=== PATIENT | male | born 1985 | race Caucasian/White ===

== ENCOUNTER 2024-09-16 05:39 | Emergency (ER) | payer SELFPAY ==
[2024-09-16] VITALS (25 sets, daily range): BP systolic 108–160; BP diastolic 71–102; PULSE 95–135; RESP 12–19; TEMP 36.3; O2SAT 98–100
--- NOTE | ~2024-09-16 | XR_ITS ---
Portable upright view of the abdomen Clinical history: NG tube placement Findings: NG tube in satisfactory position on this exam. Several distended small bowel loops are pres ent, which could reflect bowel obstruction. No abnormal mass lesion or calcification is seen. Osseous structures are intact. Impression: NG tube in satisfactory position. Possible small bowel obstruction. Reviewed, dictated and finalized at [facility]. Impression: NG tube in satisfactory position. Possible small bowel obstruction.
--- NOTE | ~2024-09-16 | CT_ITS ---
Non-contrast Head CT History: Seizure Technique: Axial non-contrast imaging of the brain was performed. Dose reduction technique was used on this scan by utilizing automated exposure control and iterative reconstruction technique. The dose -length product (DLP) was 681.00 mGy-cm. Findings: There is no evidence of intracranial hemorrhage, mass lesion, or acute infarct. Brain par enchyma appears normal. The ventricles and subarachnoid spaces are normal in size. The calvarium ap pears normal. The visualized paranasal sinuses and mastoid air cells are clear. Impression: No significant abnormality seen. Reviewed, dictated and finalized at location . Impression: No significant abnormality seen.
--- NOTE | ~2024-09-16 | XR_ITS ---
Portable chest x-ray Comparison: None Clinical History: Seizure, tube placement Findings: Endotracheal tube in satisfactory position. NG tube is partially imaged in the neck, coile d in the pharynx, with tip at the thoracic inlet region. Lungs are clear, without focal consolidation or pleural effusion. Cardiomediastinal silhouette is unremarkable. Bones and soft tissues are unrem arkable. Impression: Malpositioned NG tube which is coiled in the neck/pharynx with tip at the level of the thoracic inlet . Removal and replacement/repositioning of NG tube is required. ET tube in satisfactory position. Clear lungs. Reviewed, dictated and finalized at location M. Impression: Malpositioned NG tube which is coiled in the neck/pharynx with tip at the level of the thoracic inlet. Removal and replacement/repositioning of NG tube is req uired. ET tube in satisfactory position. Clear lungs.
[2024-09-16] MEDS: LORazepam INJ (*CRX) 2 MG/ML VIAL 4 MG IV PUSH (05:27)
[2024-09-16] MEDS: ROCURONIUM BROMIDE 50 MG/5 ML VIAL 100 MG IV PUSH (05:36)
[2024-09-16] MEDS: ETOMIDATE 20 MG/10 ML AMPUL IV PUSH (05:36)
--- NOTE | 2024-09-16 05:40 | PC.NURSE ---
Addendum entered by Paz Eng RN 09/16/24 06:08: unable to place temp nicolette solis placed Original Note: 4mg ativan @ 0527 edp torossian at bedside for intubation 0527 20mg etomidate @ 0536 100mg rocuronium @ 0536 7.5ett @ 26 at the lip secretion and vomit in the airway course breathe sounds positive color change Soft restraints placed @ 0540 NG @ 80 via edp torossian @ 0540 temp solis @ 0545
--- NOTE | 2024-09-16 05:52 | ED.SEIZURE ---
HPI - Seizure General Chief Complaint: Seizure Stated Complaint: 6 sz since 0200 Time Seen by Provider: 09/16/24 05:46 History of Present Illness HPI Narrative: 38-year-old male with history of traumatic brain injury and epilepsy as well as polysubstance abuse presenting to the emergency department and status epilepticus patient had reportedly 6 seizures witnessed by family members at home who did not call EMS initially as he has a history of epilepsy and they were waiting this out but patient was not responsive were coming out of it. EMS was called to find the patient combative and postictal, pulling at lines and oxygen. He arrives into the emergency department in to room 14 where he was found to be actively seizing, generalized tonic clonic seizure activity, cyanotic and hypoxic at 70% with gurgling respirations and smell of vomitus. RSI set up for emergent intubation. Collateral formation provided by EMS and family who is on the way. He takes oxcarbazepine but no other medications for epilepsy. No reported trauma today. Other collateral formation limited at this time. No history in the EMR. Related Data Allergies Allergy/AdvReac Type Severity Reaction Status Date / Time No Known Allergies Allergy Verified 09/16/24 06:40 Review of Systems Review of Systems: ROS unobtainable: Yes unobtainable due to medical condition and unobtainable due to mental status Exam Narrative: GENERAL: Active generalized tonic clonic seizure activity with gaze deviation to the left side, gurgling respirations. respiratory distress HEAD: [Normocephalic, atraumatic.] EYES: Pupils are 4 mm and gaze deviation to the left side ENT: Nares clear, no rhinorrhea or epistaxis. Mucous membranes moist. NECK: Supple. CHEST: Coarse bibasilar breath sounds with gurgling respirations HEART: Tachycardic rate, regular rhythm. No murmur heard. Cyanotic peripheral extremities and perioral ABDOMEN: [Soft, nondistended], [nontender], [No rigidity or guarding] EXTREMITIES: Normal range of motion. [No edema.] SKIN: Skin mottling with cyanosis and ashen redd coloration to the face and blue lips with cyanotic appearance to the extremities NEURO: Active generalized tonic clonic seizure activity, gaze preference to the left side Course Vital Signs Vital signs: Vital Signs Temperature 36.3 C L 09/16/24 05:26 Pulse Rate 133 H 09/16/24 05:26 Respiratory Rate 16 09/16/24 05:26 Blood Pressure 144/95 H 09/16/24 05:26 Pulse Oximetry 100 09/16/24 05:26 Oxygen Delivery Room Air 09/16/24 05:26 Temperature 36.3 C L 09/16/24 05:26 Pulse Rate 98 09/16/24 08:15 Respiratory Rate 18 09/16/24 08:15 Blood Pressure 115/80 09/16/24 08:15 Pulse Oximetry 99 09/16/24 08:15 Oxygen Delivery Mechanical Ventilation 09/16/24 05:30 Fraction of Inspired Oxygen 100 09/16/24 05:30 Procedures EJ/Peripheral Line Arm L: EJ/Peripheral Line Date: 09/16/24 EJ/Peripheral Line Time: 06:39 Time Out Performed: Yes Skin Cleansed in Sterile Fashion: Yes Ultrasound Guided: Yes Size (gauge): 18 IV Secured and Dressing Applied: Yes Patient Tolerated Procedure: well and no complications Additional Comments: Coat Joiner images of vein captured Intubation Intubation #1: Intubation Date: 09/16/24 Intubation Time: 05:30 Time out performed: Yes sedative: Etomidate Mg Given: 20 paralytic: Rocuronium Mg Given: 100 Laryngoscope: fiber optic video scope Tube Size (cm): 7.5 Method of Intubation: orotracheal Number of Attempts: 1 Tube Secured Depth (cm): 24 Tube Secured Location: lips Tube Placement Confirmation: visualized tube passing through cords, equal breath sounds bilaterally, no breath sounds over epigastrium and confirmation by capnometry Patient Tolerated Procedure: well and no complications Intubation Complications: none Additional Comments: Frothy secretions and vomitus in the posterior oropharynx and airway. Suctioned. MDM - Seizure MDM Narrative Medical decision making narrative: 38-year-old male with a history traumatic brain injury with resultant epilepsy on oxcarbazepine. Patient presents with status epilepticus. He was found to have 6 seizures by family members at home back to back without any return to baseline. Patient presents seizing in the resuscitation room 14. Where he is cyanotic, ashen redd in appearance with mottling to the skin, gurgling respirations, respiratory distress, 70% on room air with good waveform, smell of vomitus in his mouth. RSI kit set up for emergent intubation, 4 mg of IV Ativan was provided, 3 g of Keppra loaded, rapid sequence intubation with etomidate and rocuronium underway with 1st pass success via video laryngoscopy. Vomitus and frothy secretions in the airway. 7.5 ET tube secured at 24 cm at the lip. Patient's oxygenation improved 100% with bagging, x-ray confirmed endotracheal tube intubation placement, OG tube needing readjustment. Patient started on propofol infusion at 40 micrograms/kilogram per minute, Keppra and fluids completed, remains tachycardic with a pulse in the 120s to 130s, blood pressure 140-[address] of the head was ordered, chest x-ray, EKG, basic laboratory studies, lactic acid, urine drug screen and toxicological panels obtained. Patient will need transfer to higher level care center with Neurology capabilities and Neuro ICU. Will obtain CT head and transfer will be initiated. CT head shows no acute intracranial abnormalities. Initial ABG shows significant acidosis with an undetectable pH under 6.7 likely secondary to significant acidosis from seizure activity. Three ampules of sodium bicarbonate were infused and repeat VBG obtained shortly thereafter. Laboratory studies were initially hemolyzed and IV was established into left forearm under ultrasound guidance and redrawn. Spoke to the [facility] transfer system and was connected with the triage team who will accept the patient to the ICU after laboratory studies and CT report. Awaiting labs and will report back to Shayy at the [facility] transfer center @ [phone]. Patient's laboratory studies started coming back with a leukocytosis of 40,000, electrolytes still pending, I discussed the case with the Neuro ICU physician and patient was accepted at [facility] ICU under Dr. Gallego with recommendations to start empiric antibiosis and antiviral therapy. He was started on vancomycin, ceftriaxone and azithromycin. Air evac was placed on standby and awaiting bed assignment for transfer. Medical Records Attestation: I reviewed the patient's medical records. Lab Data Attestation: I reviewed the patient's lab results. 09/16/24 06:10 09/16/24 07:17 Labs: Lab Results 09/16/24 09/16/24 09/16/24 Range/Units 06:10 06:12 06:37 WBC 40.1 H (4.5-10.0) K/mm3 RBC 5.69 (4.6-6.20) M/mm3 Hgb 17.3 (14.0-18.0) g/dL Hct 56.6 H (42.0-52.0) % MCV 99.5 (80-100) fl MCH 30.4 (26-34) pg MCHC 30.6 L (32-36) g/dl RDW 13.2 (11.5-14.5) % Plt Count 369 (150-375) k/mm3 MPV 9.8 (7.4-10.4) fl Immature Gran % (Auto) 2.5 H (0-0.5) % Neut % (Auto) 66.7 (45.5-73.1) % Lymph % (Auto) 22.1 (18.3-44.2) % Thurston % (Auto) 7.5 (2.6-8.5) % Eos % (Auto) 0.7 (0-4.4) % Baso % (Auto) 0.5 (0.2-1.2) % Lymph # (Auto) 8.87 H (0.9-3.2) K/mm3 Thurston # (Auto) 3.0 H (0.1-0.6) K/mm3 Eos # (Auto) 0.3 (0-0.3) K/mm3 Baso # (Auto) 0.2 H (0.0-0.1) K/mm3 Abs Immat Gran (auto) 1.01 H (0.00-0.031) K/mm3 Absolute Neuts (auto) 26.7 H (1.3-6.7) K/mm3 Absolute Nucleated RBC 0.000 (0.0-0.012) K/mm3 Nucleated RBC % 0.0 (0.0-0.2) % PT 17.7 H (11.1-14.7) Seconds INR 1.5 APTT 35.5 (22.3-36.8) Seconds Minute Volume Vent Mode Tidal Volume ml PEEP cmH2O Peak Inspir Pressure Pressure Support Sodium (137-145) mmol/L Potassium (3.4-5.0) mmol/L Chloride (98-107) mmol/L Carbon Dioxide (22-30) mmol/L Anion Gap (4-12) mmol/L BUN (9-20) mg/dL Creatinine (0.7-1.3) mg/dL Estim Creat Clear Calc ml/min Estimated GFR (59 - ) Glucose (65-110) mg/dL POC Capillary Glucose 230 H (65-105) mg/dl Lactic Acid (0.7-2.0) mmol/L Calcium (8.4-10.2) mg/dL Total Bilirubin (0.2-1.3) mg/dL AST (17-59) U/L ALT (6-50) U/L Alkaline Phosphatase (38-126) U/L Total Protein (6.3-8.2) g/dL Albumin (3.5-5.1) g/dL TSH (0.465-4.680) uIU/mL Urine Color Yellow (Yellow) Urine Appearance Clear (Clear) Urine pH 5.0 (5.0-9.0) Ur Specific Etta 1.012 (1.001-1.035) Urine Protein 2+ H (Negative) mg/dL Urine Glucose (UA) Trace H (Negative) mg/dL Urine Ketones Negative (Negative) mg/dL Ur Blood (Man) 2+ H (Negative) Urine Nitrate Negative (Negative) Urine Bilirubin Negative (Negative) Urine Urobilinogen 0.2 (<2.0) mg/dL Add Ur Microanalysis Reviewed Leukocyte Esterase Rfl Negative (Negative) LISSY/UL Urine RBC 0-2 (0-2) /hpf Urine WBC 0-5 (0-3) /hpf Ur Squamous Epith Cells None seen (Few) /hpf Urine Bacteria None seen /hpf Urine Casts >20 Salicylates < 1.0 L (2-20) mg/dL Urine Opiates Screen Negative (Negative) Urine Methadone Screen Negative (Negative) Acetaminophen < 10 L (10-30) ug/mL Ur Barbiturates Screen Negative (Negative) Ur Phencyclidine Scrn Negative (Negative) Ur Amphetamine Screen Negative (Negative) U Benzodiazepines Scrn Negative (Negative) Urine Cocaine Screen Negative (Negative) U Cannabinoids Screen Negative (Negative) Ethyl Alcohol < 10 (<10) mg/dL 09/16/24 09/16/24 Range/Units 06:54 07:17 WBC (4.5-10.0) K/mm3 RBC (4.6-6.20) M/mm3 Hgb (14.0-18.0) g/dL Hct (42.0-52.0) % MCV (80-100) fl MCH (26-34) pg MCHC (32-36) g/dl RDW (11.5-14.5) % Plt Count (150-375) k/mm3 MPV (7.4-10.4) fl Immature Gran % (Auto) (0-0.5) % Neut % (Auto) (45.5-73.1) % Lymph % (Auto) (18.3-44.2) % Thurston % (Auto) (2.6-8.5) % Eos % (Auto) (0-4.4) % Baso % (Auto) (0.2-1.2) % Lymph # (Auto) (0.9-3.2) K/mm3 Thurston # (Auto) (0.1-0.6) K/mm3 Eos # (Auto) (0-0.3) K/mm3 Baso # (Auto) (0.0-0.1) K/mm3 Abs Immat Gran (auto) (0.00-0.031) K/mm3 Absolute Neuts (auto) (1.3-6.7) K/mm3 Absolute Nucleated RBC (0.0-0.012) K/mm3 Nucleated RBC % (0.0-0.2) % PT (11.1-14.7) Seconds INR APTT (22.3-36.8) Seconds Minute Volume Not Reportable Vent Mode Cmv Tidal Volume 400 ml PEEP 5 cmH2O Peak Inspir Pressure Not Reportable Pressure Support Not Reportable Sodium 142 (137-145) mmol/L Potassium 5.0 (3.4-5.0) mmol/L Chloride 105 (98-107) mmol/L Carbon Dioxide 17 L (22-30) mmol/L Anion Gap 20 H (4-12) mmol/L BUN 13 (9-20) mg/dL Creatinine 1.62 H (0.7-1.3) mg/dL Estim Creat Clear Calc 46 ml/min Estimated GFR 48 L (59 - ) Glucose 224 H (65-110) mg/dL POC Capillary Glucose (65-105) mg/dl Lactic Acid 12.6 H* (0.7-2.0) mmol/L Calcium 8.5 (8.4-10.2) mg/dL Total Bilirubin 0.5 (0.2-1.3) mg/dL AST 51 (17-59) U/L ALT 43 (6-50) U/L Alkaline Phosphatase 73 (38-126) U/L Total Protein 7.2 (6.3-8.2) g/dL Albumin 4.3 (3.5-5.1) g/dL TSH 4.490 (0.465-4.680) uIU/mL Urine Color (Yellow) Urine Appearance (Clear) Urine pH (5.0-9.0) Ur Specific Etta (1.001-1.035) Urine Protein (Negative) mg/dL Urine Glucose (UA) (Negative) mg/dL Urine Ketones (Negative) mg/dL Ur Blood (Man) (Negative) Urine Nitrate (Negative) Urine Bilirubin (Negative) Urine Urobilinogen (<2.0) mg/dL Add Ur Microanalysis Leukocyte Esterase Rfl (Negative) LISSY/UL Urine RBC (0-2) /hpf Urine WBC (0-3) /hpf Ur Squamous Epith Cells (Few) /hpf Urine Bacteria /hpf Urine Casts Salicylates (2-20) mg/dL Urine Opiates Screen (Negative) Urine Methadone Screen (Negative) Acetaminophen (10-30) ug/mL Ur Barbiturates Screen (Negative) Ur Phencyclidine Scrn (Negative) Ur Amphetamine Screen (Negative) U Benzodiazepines Scrn (Negative) Urine Cocaine Screen (Negative) U Cannabinoids Screen (Negative) Ethyl Alcohol (<10) mg/dL ABG Data ABG results: 09/16/24 09/16/24 05:57 06:54 ABG pH < 6.700 L* ABG pCO2 44.0 ABG pO2 < 570.0 H VBG pH 7.237 L* VBG pCO2 36.0 L VBG pO2 53.8 H VBG HCO3 15.0 L Oxyhemoglobin 98.1 Total Hemoglobin 19.3 H O2 Delivery Device Ventilator O2 Liters/Min Not Reportable Vent Rate 18 FiO2 100 30 Attestation: I personally reviewed and interpreted this ABG as follows: Interpretation: Significant acidosis likely metabolic. Repeat VBG shows metabolic acidosis as well with likely component lactic acid Imaging Data Attestation: I personally reviewed and interpreted this imaging study as follows: My impression: Impressions Chest X-Ray 09/16/24 06:07 Impression: Malpositioned NG tube which is coiled in the neck/pharynx with tip at the level of the thoracic inlet. Removal and replacement/repositioning of NG tube is required. ET tube in satisfactory position. Clear lungs. Abdomen X-Ray 09/16/24 06:08 Impression: NG tube in satisfactory position. Possible small bowel obstruction. Head CT 09/16/24 06:35 Impression: No significant abnormality seen. Critical Care Time Critical Care Time Critical Care Time: Yes Total Critical Care Time: 75 Discharge Plan Discharge Clinical Impression: Status epilepticus, Metabolic acidosis, Elevated WBCs, History of traumatic brain injury Patient Disposition: Acute Care Hospital Condition: Serious Patient Language: Malay Follow-up/Referrals: UNKNOWN,DOCTOR [Primary Care Provider] - Time of Disposition: 07:11
[2024-09-16] MEDS: levETIRAcetam 1500MG/NACL100ML 3,000 MG/200 ML BAG 999 MG (05:57)
[2024-09-16] MEDS: PROPOFOL IV EMULSION 100 ML 17.3 MG (05:59)
--- NOTE | 2024-09-16 06:03 | PC.NURSE ---
ng removed as it was coiled in the throat. OG placed 65 @ lip
[2024-09-16 06:11] LABS: Fractional Inspired Oxygen 100 %; Oxyhemoglobin 98.1 % THb (90.0-100.0); PO2 ABG < 570.0 mmHg (80.0-100.0); Total Hemoglobin 19.3 g/dL (12.0-18.0)
[2024-09-16] MEDS: LACTATED RINGERS 1,000 ML 999 ML IV CONT (06:12)
[2024-09-16 06:13] LABS: Glucose Point of Care 230 mg/dl (65-105)
[2024-09-16 06:24] LABS: Basophils Absolute Auto 0.2 K/mm3 (0.0-0.1); Basophils Percent Auto 0.5 % (0.2-1.2); Eosinophils Absolute Auto 0.3 K/mm3 (0-0.3); Eosinophils Percent Auto 0.7 % (0-4.4); Hematocrit 56.6 % (42.0-52.0); Hemoglobin 17.3 g/dL (14.0-18.0); Immature Granulocyte Absolute 1.01 K/mm3 (0.00-0.031); Immature Granulocyte Percent A 2.5 % (0-0.5); Lymphocytes Absolute Auto 8.87 K/mm3 (0.9-3.2); Lymphocytes Percent Auto 22.1 % (18.3-44.2); Mean Corpuscular HGB Conc 30.6 g/dl (32-36); Mean Corpuscular Hemoglobin 30.4 pg (26-34); Mean Corpuscular Volume 99.5 fl (80-100); Mean Platelet Volume 9.8 fl (7.4-10.4); Monocytes Percent Auto 7.5 % (2.6-8.5); Neutrophils Absolute Auto 26.7 K/mm3 (1.3-6.7); Neutrophils Percent Auto 66.7 % (45.5-73.1); Platelet Count Result 369 k/mm3 (150-375); Red Blood Count 5.69 M/mm3 (4.6-6.20); Red Cell Distribution Width 13.2 % (11.5-14.5); White Blood Count 40.1 K/mm3 (4.5-10.0)
[2024-09-16 06:35] LABS: INR 1.5; Prothrombin Time 17.7 Seconds (11.1-14.7)
[2024-09-16 06:36] LABS: Partial Thromboplastin Time 35.5 Seconds (22.3-36.8)
[2024-09-16 06:37] LABS: Acetaminophen < 10 ug/mL (10-30); Ethanol < 10 mg/dL (<10); Salicylate < 1.0 mg/dL (2-20)
[2024-09-16 06:39] LABS: Amphetamine Screen Urine Negative (Negative); Barbiturate Screen Urine Negative (Negative); Benzodiazepines Screen Urine Negative (Negative); Cannabinoid Screen Urine Negative (Negative); Cocaine Screen Urine Negative (Negative); Methadone Screen Urine Negative (Negative); Opiate Screen Urine Negative (Negative); Phencyclidine Screen Urine Negative (Negative)
--- NOTE | 2024-09-16 06:39 | PC.NURSE ---
jacob peacock to push 3 amps of sodium bicarb while patient in ct.
[2024-09-16] MEDS: SODIUM BICARBONATE 8.4% 50 MEQ/50 ML SYRINGE 150 MEQ IV PUSH (06:40)
[2024-09-16 06:47] LABS: Add Urine Microscopic? YES; Appearance Urine Clear (Clear); Bacteria Urine None Seen /hpf; Bilirubin Urine Negative (Negative); Blood Urine 2+ (Negative); Color Urine Yellow (Yellow); Glucose Urine UA Trace mg/dL (Negative); Ketones Urine Negative (Negative); Leukocyte Esterase Ur Negative LEU/UL (Negative); Need Manual Microscopic Reviewed; Nitrate Urine Negative (Negative); Non Pathogenic Casts >20; Protein Urine 2+ mg/dL (Negative); RBC Urine 0-2 /hpf (0-2); Specific Grav Ur 1.012 (1.001-1.035); Squamous Epithelial Cell Urine None Seen /hpf (Few); Urobilinogen Urine 0.2 mg/dL (<2.0); WBC Urine 0-5 /hpf (0-3)
[2024-09-16 06:55] LABS: pH ABG < 6.700 (7.350-7.450)
[2024-09-16 07:02] LABS: Fractional Inspired Oxygen 30 %; PO2 VBG 53.8 mmHg (35.0-45.0)
[2024-09-16 07:03] LABS: Arterial Blood Gas PEEP 5 cmH2O; Arterial Blood Gas Tidal Volume 400 ml; Arterial Blood Gas Vent Mode CMV; Arterial Blood Gas Ventilator rate 18 /MIN; Device VENTILATOR; pH VBG 7.237 (7.300-7.400)
[2024-09-16 07:47] LABS: Alanine Aminotransferase 43 U/L (6-50); Albumin Level 4.3 g/dL (3.5-5.1); Alkaline Phosphatase 73 U/L (38-126); Anion Gap 20 mmol/L (4-12); Aspartate Amino Transferase 51 U/L (17-59); Bilirubin,Total 0.5 mg/dL (0.2-1.3); Blood Urea Nitrogen 13 mg/dL (9-20); Calcium 8.5 mg/dL (8.4-10.2); Carbon Dioxide 17 mmol/L (22-30); Chloride 105 mmol/L (98-107); Estimated CRCL calculation 46 ml/min; Estimated Glomerular Filt Rate 48; Glucose 224 mg/dL (65-110); Sodium 142 mmol/L (137-145); Total Protein 7.2 g/dL (6.3-8.2)
[2024-09-16] MEDS: ACYCLOVIR SODIUM IVPB 800 MG in DEXTROSE 5% IN WATER 250 ML 266 MG IVPB (07:50)
[2024-09-16 07:59] LABS: Lactic Acid Reflex 12.6 mmol/L (0.7-2.0)
[2024-09-16] MEDS: VANCOMYCIN 1,500 MG/NS 500 ML 1,500 MG/500 ML BAG 250 MG IVPB (08:46)
[2024-09-16 09:23] LABS: Reflex Lactic Acid Yes or No Add Lactic
== END 2024-09-16 09:15 | disposition short-term general hospital (02) ==
PROVIDERS: Emergency Provider Student in an Organized Health Care Education/Training Program
DX: G40.901 Epilepsy, unspecified, not intractable, with status epilepticus (principal); E87.20 Acidosis, unspecified; D72.829 Elevated white blood cell count, unspecified; Z87.820 Personal history of traumatic brain injury
CPT/HCPCS: 31500; 36415; 36600; 70450; 80053; 80143; 80179; 80307; 81001; 82077; 82803; 82805; 82948; 83605; 84443; 85018; 85025; 85610; 85730; 87040; 96361; 96365; 96366; 96367; 96375; 99291; J0133; J0696; J1953; J2060; J2704; J3370; J7060; J7120

== ENCOUNTER 2025-02-16 07:20 | Emergency (ER) | payer MEDICAID, SELFPAY ==
[2025-02-16] VITALS (13 sets, daily range): BP systolic 110–125; BP diastolic 71–82; PULSE 64–100; RESP 12–30; TEMP 36.9; O2SAT 96–100
--- NOTE | ~2025-02-16 | CT_ITS ---
EXAMINATION: CT facial & cervical spine wo COMPARISON: None HISTORY: trauma TECHNIQUE: Axial images were obtained without IV contrast. Sagittal, coronal reconstruction images were obtained from the axial views. CT scan performed using dose optimization techniques including the following automated exposure control; adjustment of mA and/or kV; use of iterative reconstruction technique. Automatic exposure control was used to reduce radiation dose. Permanent radiation dose record is archived to PACS. FINDINGS: CT facial bones: Nasal bones are intact. Anterior maxillary sinus kenny, zygomatic arches temporomandibular joints are intact. Orbital floors and medial orbits are intact. There is minimal ethmoidal and maxillary sinusitis. Visualized brain parenchyma is unremarkable. Optic globes unremarkable. No sign ificant preseptal soft tissue swelling. The remaining soft tissues appear unremarkable. There is significant dental disease noted within the left maxilla. CT cervical spine: The soft tissues and lung apices appear unremarkable. No fracture or subluxation. Moderate loss of disc height at C5-6 and C6-7 with moderate canal and foraminal stenosis. IMPRESSION: 1. No acute fracture. Reviewed, dictated and finalized at location P. MA OPERATOR IMPRESSION: 1. No acute fracture.
--- NOTE | ~2025-02-16 | CT_ITS ---
CT HEAD NON-CONTRAST Clinical History: trauma Comparison: 09/16/2024 Technique: Unenhanced axial images skull base to vertex Coronal, sagittal reformats CT images acquired with automatic exposure control for dose reduction DLP: 605 mGy-cm Findings: Sulci, ventricles: Unremarkable. No intracerebral hemorrhage. No evidence acute territorial infarct. No mass effect, midline shift. Bony calvarium intact. Visualized paranasal sinuses: Clear. Mastoid air cells: Clear. IMPRESSION: 1. No acute intracranial findings. Reviewed, dictated and finalized at location R. ING MACHINE ASSEMBLER
--- NOTE | 2025-02-16 08:20 | ED.GENADULT ---
HPI - General Adult General Chief complaint: Seizure Stated complaint: seizure - known epileptic - head injury Time Seen by Provider: 02/16/25 07:30 History of Present Illness HPI narrative: 39-year-old male presenting to emergency department for evaluation after having a seizure. Patient is currently on Keppra and Tegretol and has not yet had his morning dose which he normally takes at 10:00 a.m.. Patient's last seizure was approximately 1 month ago and that is about his standard injure seizure duration. Patient does not have a local neurologist. Patient denies any pain or injury other than a facial injury. Patient did strike the right side of his face and does have a laceration under his right eyebrow. Related Data Home Medications ?Medication ?Instructions ?Recorded ?Confirmed ?Last Taken ?Type levetiracetam 1,000 mg tablet 1,000 mg PO Q12H 02/16/25 02/16/25 02/15/25 History oxcarbazepine 300 mg tablet 450 mg PO BID 02/16/25 02/16/25 02/15/25 History Allergies Allergy/AdvReac Type Severity Reaction Status Date / Time No Known Allergies Allergy Verified 02/16/25 07:22 Review of Systems Review of Systems: All systems reviewed & are unremarkable except as noted in HPI and below Exam Narrative: APPEARANCE: Well appearing, no pain, no distress, well-nourished. HEAD: normocephalic, atraumatic. EYES: PERRLA/EOMI, conjunctivae clear. NOSE: Normal no drainage EARS:TMS clear with good light reflex. THROAT: Pharynx clear, no exudate. NECK: Supple. No adenopathy, no masses. RESPIRATORY: Airway patent, respirations nonlabored. Clear to auscultation bilaterally, no rales, rhonchi, wheezing. CARDIOVASCULAR: Regular rate and rhythm without murmurs rubs or gallops. ABDOMINAL: Soft, nontender, nondistended, normal bowel sounds MUSCULOSKELETAL: Moves all extremities. Strength/ROM intact, No edema, No calf tenderness. NEURO: Alert. Cranial nerves II through XII intact. Good gait. Good coordination SKIN: Facial laceration Course Vital Signs Vital signs: Vital Signs Temperature 98.4 F 02/16/25 07:25 Pulse Rate 92 02/16/25 07:25 Respiratory Rate 18 02/16/25 07:25 Blood Pressure 125/82 02/16/25 07:25 Pulse Oximetry 100 02/16/25 07:25 Oxygen Delivery Room Air 02/16/25 07:25 Temperature 98.4 F 02/16/25 07:25 Pulse Rate 76 02/16/25 09:25 Respiratory Rate 16 02/16/25 09:25 Blood Pressure 110/71 02/16/25 09:25 Pulse Oximetry 100 02/16/25 09:25 Oxygen Delivery Room Air 02/16/25 07:25 Procedures Laceration Laceration 1: Date: 02/16/25 Time: 09:12 Site: face Side (If applicable): right Size (cm): 3 Description: linear Depth: simple, single layer Local Anesthetic: lidocaine 1% Amount of anesthesia used (mL): 2 Pre-repair: wound explored, irrigated and irrigated extensively ====== Skin Level ====== Size (cm): 6-0 Number of sutures: 5 Technique: simple, interrupted ====== Subcutaneous Layer ====== ====== Muscle Layer ====== ====== Tendon Layer ====== Medical Decision Making MDM Narrative Medical decision making narrative: 39-year-old male with history of seizure presented to the emergency department for evaluation after breakthrough seizure. Patient was treated with his morning dose of Keppra and Tegretol. Patient's CT face neck and brain were negative. Patient did have a facial laceration that was repaired. Patient will be provided outpatient follow-up with Neurology. All questions concerns were addressed patient was well-appearing at time of discharge. Differential Diagnosis Differential Diagnosis: Subdural hematoma, subarachnoid hemorrhage, facial fracture, facial laceration, medication noncompliance, breakthrough seizure, underlying infection Vital Signs Vital Signs: Vital Signs Temperature 98.4 F 02/16/25 07:25 Pulse Rate 92 02/16/25 07:25 Respiratory Rate 18 02/16/25 07:25 Blood Pressure 125/82 02/16/25 07:25 Pulse Oximetry 100 02/16/25 07:25 Oxygen Delivery Room Air 02/16/25 07:25 Temperature 98.4 F 02/16/25 07:25 Pulse Rate 76 02/16/25 09:25 Respiratory Rate 16 02/16/25 09:25 Blood Pressure 110/71 02/16/25 09:25 Pulse Oximetry 100 02/16/25 09:25 Oxygen Delivery Room Air 02/16/25 07:25 Lab Data Lab results reviewed: Yes I reviewed the patient's lab results. Labs: Lab Results 02/16/25 Range/Units 07:39 Carbamazepine Pending Levetiracetam Pending Imaging Data Radiologist's impression: Impressions Head CT 02/16/25 07:59 IMPRESSION: 1. No acute intracranial findings. Head/Cervical Spine/Facial Bones CT 02/16/25 08:30 IMPRESSION: 1. No acute fracture. Discharge Plan Discharge Clinical Impression: Epileptic seizure, Facial laceration Patient Disposition: Home Condition: Stable Instructions: Antibiotic Form, Epilepsy (ED), Facial Laceration (ED) Additional Instructions: Wound care as directed. Sutures will need to be removed and 5-7 days. Have close follow-up with neurology. If you have any worsening symptoms please call or return to the emergency department. Patient Language: Albanian Prescriptions: No Action levetiracetam 1,000 mg tablet 1,000 mg PO Q12H oxcarbazepine 300 mg tablet 450 mg PO BID Follow-up/Referrals: Arnav Chavez MD [Physician, Neurology] PHYSICIAN,FIRE APPARATUS ENGINEER [Primary Care Provider, Internal Medicine]
[2025-02-16] MEDS: carBAMazepine CHEW 50 MG CHEW PO (08:43)
[2025-02-17 18:08] LABS: Carbamazepine (Tegretol) <0.5 ug/mL (4.0-12.0)
== END 2025-02-16 09:27 | disposition home or self-care (01) ==
PROVIDERS: Emergency Provider Emergency Medicine
DX: G40.909 Epilepsy, unspecified, not intractable, without status epilepticus (principal); S01.111A Laceration without foreign body of right eyelid and periocular area, initial encounter; Z79.899 Other long term (current) drug therapy; W18.39XA Other fall on same level, initial encounter
CPT/HCPCS: 12013; 70450; 70486; 72125; 80156; 80177; 99284; A9270